=== PATIENT | male | born 1985 | race African-American/Black ===

== ENCOUNTER 2017-11-04 10:30 | Emergency (ER) | payer SELFPAY ==
[~2017-11-04] VITALS: Ht 190.5 cm; Wt 86.0 kg
[2017-11-04 17:05] VITALS: BP 143/92
== END 2017-11-04 17:09 | disposition home or self-care (01) ==
LOC: ER 10:30 → EDBD 10:30 → ER 17:09
DX: K40.90 Unilateral inguinal hernia, without obstruction or gangrene, not specified as recurrent (principal)
CPT/HCPCS: 76857; 99284